=== PATIENT | male | born 1960 | race Caucasian/White ===

== ENCOUNTER 2023-08-01 14:05 | Inpatient (IN) | payer BC ==
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
[2023-08-01 17:02] LABS: Basophils % (A) 0 %; Eosinophils # (A) 0.2 k/uL (0-0.7); Eosinophils % (A) 1 %; HCT 41.4 % (39.0-53.0); HGB 13.7 gm/dL (13.0-17.5); Lymphocytes # (A) 1.8 k/uL (1.0-4.8); Lymphocytes % (A) 9 %; MCHC 33.1 g/dL (31.0-37.0); MCV 96.7 fL (80.0-100.0); Mean Platelet Volume 7.9; Monocytes # (A) 1.2 k/uL (0-1.0); Monocytes % (A) 6 %; Neutrophils # (A) 15.8 k/uL (1.3-7.7); Neutrophils % (A) 82 %; Platelet Count 353 k/uL (150-450); RBC 4.28 m/uL (4.30-5.90); RDW 14.3 % (11.5-15.5); WBC 19.3 k/uL (3.8-10.6)
[2023-08-01 17:18] LABS: ALT 27 U/L (4-49); AST 25 U/L (17-59); African American GFR (CKD) >90 (>60 ml/min/1.73 sqM); Albumin 4.2 g/dL (3.5-5.0); Alkaline Phosphatase 101 U/L (38-126); Anion Gap 13 mmol/L; Blood Urea Nitrogen 29 mg/dL (9-20); Calcium 9.4 mg/dL (8.4-10.2); Carbon Dioxide 22 mmol/L (22-30); Chloride 106 mmol/L (98-107); Glucose 126 mg/dL (74-99); INR 0.9 (<1.2); Non-African American GFR(CKD) 79 (>60 ml/min/1.73 sqM); Partial Thromboplastin Time 26.4 sec (22.0-30.0); Potassium 4.1 mmol/L (3.5-5.1); Prothrombin Time 10.3 sec (10.0-12.5); Sodium 141 mmol/L (137-145); Total Bilirubin 0.5 mg/dL (0.2-1.3); Total Protein 7.3 g/dL (6.3-8.2)
[2023-08-01] MEDS ORDERED: SODIUM CHLORIDE 0.9% 1,000 ML IV ONE (17:47)
[2023-08-01 18:36] LABS: Basophils % (A) 0 %; Eosinophils # (A) 0.1 k/uL (0-0.7); Eosinophils % (A) 0 %; HCT 40.1 % (39.0-53.0); HGB 13.5 gm/dL (13.0-17.5); Lymphocytes % (A) 11 %; MCH 32.4 pg (25.0-35.0); MCHC 33.7 g/dL (31.0-37.0); MCV 96.1 fL (80.0-100.0); Mean Platelet Volume 7.9; Monocytes # (A) 1.4 k/uL (0-1.0); Monocytes % (A) 8 %; Neutrophils # (A) 14.8 k/uL (1.3-7.7); Neutrophils % (A) 80 %; Platelet Count 362 k/uL (150-450); RBC 4.17 m/uL (4.30-5.90); RDW 14.4 % (11.5-15.5); WBC 18.5 k/uL (3.8-10.6)
[2023-08-01 19:19] LABS: Appearance,Urine Clear (Clear); Bacteria,Urine Rare /hpf; Bilirubin,Urine Negative (Negative); Blood,Urine Moderate (Negative); Color,Urine Yellow; Glucose,Urine (UA) Negative (Negative); Hyaline Casts,Urine 8 /lpf (0-2); Ketones,Urine Negative (Negative); Leukocyte Esterase,Urine Negative (Negative); Mucus,Urine Many /hpf; Nitrite,Urine Negative (Negative); PH, Urine 5.5 (5.0-8.0); Protein,Urine 1+ (Negative); RBC,Urine 23 /hpf (0-5); Specific Gravity,Urine 1.025 (1.001-1.035); Squamous Epithelial Cell,Urine <1 /hpf (0-4); Urobilinogen,Urine <2.0 mg/dL (<2.0); WBC,Urine 4 /hpf (0-5)
[2023-08-01 23:47] LABS: Basophils # (A) 0.1 k/uL (0-0.2); Basophils % (A) 0 %; Eosinophils # (A) 0.1 k/uL (0-0.7); Eosinophils % (A) 0 %; HCT 38.6 % (39.0-53.0); HGB 12.9 gm/dL (13.0-17.5); Lymphocytes # (A) 2.4 k/uL (1.0-4.8); Lymphocytes % (A) 13 %; MCH 32.2 pg (25.0-35.0); MCHC 33.4 g/dL (31.0-37.0); MCV 96.3 fL (80.0-100.0); Mean Platelet Volume 8.3; Monocytes # (A) 1.6 k/uL (0-1.0); Monocytes % (A) 8 %; Neutrophils # (A) 14.8 k/uL (1.3-7.7); Neutrophils % (A) 76 %; Platelet Count 307 k/uL (150-450); RBC 4.01 m/uL (4.30-5.90); RDW 14.8 % (11.5-15.5); WBC 19.4 k/uL (3.8-10.6)
[2023-08-02 08:48] LABS: HCT 38.6 % (39.0-53.0); HGB 12.7 gm/dL (13.0-17.5); MCHC 32.8 g/dL (31.0-37.0); MCV 97.7 fL (80.0-100.0); Mean Platelet Volume 7.8; Platelet Count 335 k/uL (150-450); RBC 3.95 m/uL (4.30-5.90); RDW 14.5 % (11.5-15.5); WBC 18.3 k/uL (3.8-10.6)
[2023-08-02 09:00] LABS: African American GFR (CKD) >90 (>60 ml/min/1.73 sqM); Anion Gap 9 mmol/L; Blood Urea Nitrogen 27 mg/dL (9-20); Calcium 8.8 mg/dL (8.4-10.2); Carbon Dioxide 24 mmol/L (22-30); Chloride 110 mmol/L (98-107); Glucose 109 mg/dL (74-99); Non-African American GFR(CKD) >90 (>60 ml/min/1.73 sqM); Potassium 3.9 mmol/L (3.5-5.1); Sodium 143 mmol/L (137-145)
[2023-08-02] MEDS: PIPERACILLIN-TAZOBACTAM 3.375 GM in SODIUM CHLORIDE 0.9% 100 ML IVPB SCH ×3 (10:07→23:49)
[2023-08-02] MEDS: IOPAMIDOL CONTRAST (ORAL USE) VIAL PO PRN ×2 (11:23→12:34)
--- NOTE | 2023-08-02 14:04 | CT ---
EXAMINATION TYPE: CT abdomen pelvis w con DATE OF EXAM: 08/02/2023 COMPARISON: None INDICATION: abdominal pain, rectal bleed DLP: 463.2 mGycm, Automated exposure control for dose reduction was used. CONTRAST: 100 mL of Isovue 300. Study performed with Oral Contrast TECHNIQUE: Axial images were obtained from above the diaphragm to the pubic rami in the axial plane a t 5 mm thick sections. Reconstructed images are reviewed on the computer in the coronal plane. FINDINGS: Limited CT sections are obtained the lung bases. The lung bases are clear. CT ABDOMEN: Liver: Hepatic cyst is present in the right lobe liver near the diaphragm Spleen: Normal Pancreas: Normal Adrenal glands: Left adrenal gland is thickened at 1.9 cm. Right adrenal gland appears normal. Gallbladder: Normal Kidneys: No masses are evident. No hydronephrosis is present. Delayed images were obtained through the kidneys which better demonstrate cortical renal cysts. Some peripelvic cysts are present bilatera lly. Aorta: Vascular calcification is within the aorta. Inferior vena cava: Normal. CT PELVIS: There is diffuse wall thickening from the distal transverse colon to the distal sigmoid colon. Correl ate for colitis. No free air is evident. Mild inflammatory changes are adjacent to the region of coli tis. Remaining loops of bowel with contrast. Normal. There are some loops of bowel lacking oral contr ast limiting their evaluation. Appendix: Normal as visualized. Urinary bladder: Normal. Genitourinary structures: Prostate contains calcification. Osseous structures: No suspicious lytic or sclerotic lesions. IMPRESSION: 1. Colitis extending from the distal transverse colon through the splenic flexure to the distal sigm oid colon.
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
--- NOTE | 2023-08-02 22:50 | HP ---
HISTORY AND PHYSICAL CHIEF COMPLAINT: Bright red rectal bleeding. HISTORY OF PRESENT ILLNESS: This is the first known admission for this 63-year-old white male. For the 3 to 4 days, he was having diarrhea and then started to have bright red rectal bleeding. He came to the emergency room [place] [address]. He was not febrile. He had no vomiting. His CT suggested colitis. REVIEW OF SYSTEMS: Otherwise is unremarkable. Past medical history, family history, personal and social histories reveal that he has been on Lotrel 10-20 once a day, leflunomide 20 mg once a day, and prednisone 10 mg once a day. This treatment is for rheumatoid arthritis. He does not smoke. PHYSICAL EXAMINATION: VITAL SIGNS: Blood pressure is 142/80, the pulse of 66, respirations of 18, he is afebrile. GENERAL: Appeared to be well developed, well nourished, no acute distress. SKIN: Skin color is normal. Skin is warm and dry. LYMPHATICS: Lymph nodes are not enlarged. HEAD, EARS, EYES, NOSE, MOUTH, AND THROAT: Normal. NECK: Neck veins not distended. Thyroid is not enlarged. CHEST: Clear. CARDIAC: Normal. ABDOMEN: Soft and slightly tender throughout. Bowel sounds are present. IMPRESSION: 1. Bright red rectal bleeding. 2. History of rheumatoid arthritis. 3. Possible colitis. 4. Leukocytosis. PLAN: 1. Bedrest. 2. IV fluids. 3. N.p.o. 4. Consult with Gastroenterology. MMODL / IJN: [id number] /
--- NOTE | 2023-08-02 22:59 | PN ---
PROGRESS NOTE DATE OF SERVICE: 08/02/2023 CHIEF COMPLAINT: Bright red rectal bleeding. HISTORY OF PRESENT ILLNESS: This gentleman is feeling okay and he is undergoing workup. He will be seen by Gastroenterology and a decision will have to be made whether or not he undergoes colonoscopy. PHYSICAL EXAMINATION: CHEST: Clear. CARDIAC: Normal. ABDOMEN: Flat and slightly tender in the right upper quadrant. IMPRESSION: 1. Bright red rectal bleeding. 2. Possible colitis. PLAN: Endoscopy. MMODL / IJN: [id number] /
[2023-08-03] MEDS: PIPERACILLIN-TAZOBACTAM 3.375 GM in SODIUM CHLORIDE 0.9% 100 ML IVPB SCH ×3 (08:18→23:10)
--- NOTE | 2023-08-03 11:02 | P.PN ---
Subjective Progress Note Date: 08/03/23 Principal diagnosis: Acute Colitis This pleasant 63-year-old male who presented to the emergency department yesterday afternoon with complaints of abdominal pain and rectal bleeding. Patient states Sunday night he started having lower abdominal pain and cramping followed by large amount of diarrhea. He then had several more episodes of lower abdominal cramping, however he then started having bright red blood per rectum with little stool. He states his continue all day yesterday and through the night. This morning he had very small amount of bright red blood. He stat es abdominal pain has improved however he'll get the cramping and then he knows he will be passing blood. He does have some nausea but no vomiting. He said he felt feverish and chills at home. He denies any similar episodes in the past, no history of colitis or Crohn's disease. Denies any anticoagulation. 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 On admission patient had a WBC of 19.3 hemoglobin 13.7. Today's repeat WBC 18.3 hemoglobin 12.7 sodium 143 potassium 3.9 BUN 27 creatinine 0.86. C. diff negative. Denies any previous EGD or colonoscopy. States he did a cologuard two weeks ago which was normal. 08/03/2023 Patient is seen and examined today as a follow-up. He states abdominal pain improving, but still having some lower abdominal cramping. Still having loose stool and bleeding every hour. No available labs this morning. He denies any nausea or vomiting, fevers or chills. He's been afebrile. Objective - Vital Signs Vital signs: Vital Signs Temp 98.9 F 08/03/23 02:51 Pulse 78 08/03/23 02:51 Resp 16 08/03/23 02:51 BP 116/79 08/03/23 02:51 Pulse Ox 97 08/03/23 02:51 FiO2 Intake & Output 08/02/23 08/02/23 08/03/23 06:59 18:59 06:59 Intake Total 900 1000 1500 Balance 900 1000 1500 Weight 65.771 kg Intake: Intake, IV Titration 900 1000 1000 Amount Piperacillin-Tazobactam 3 100 100 .375 gm In Sodium Chloride 0.9% 100 ml @ 25 mls/hr IVPB Q8HR [facility] Rx# :[id number] Sodium Chloride 0.9% 1, 900 900 900 000 ml @ 75 mls/hr IV . [id number] Rx#:[id number] Oral 500 Other: Voiding Method Toilet Toilet # Voids 1 2 # Bowel Movements 1 5 2 - Exam General appearance: The patient is alert, oriented, appears in no acute distress. HET: Head is normocephalic and atraumatic. Conjunctiva pink. Sclera anicteric. Neck: Supple without lymphadenopathy. Abdomen: Soft, lower abdominal tenderness, greatest on the left, nondistended. No guarding or rigidity. Extremities: Normal skin color and turgor. No pedal edema Skin: No rashes, no jaundice Neurological: No focal deficits. Alert and oriented. - Labs CBC & Chem 7: 08/02/23 08:30 08/02/23 08:30 Labs: Abnormal Lab Results - Last 24 Hours (Table) 08/02/23 08/02/23 Range/Units 08:30 08:30 WBC 18.3 H (3.8-10.6) k/uL RBC 3.95 L (4.30-5.90) m/uL Hgb 12.7 L (13.0-17.5) gm/dL Hct 38.6 L (39.0-53.0) % Chloride 110 H (98-107) mmol/L BUN 27 H (9-20) mg/dL Glucose 109 H (74-99) mg/dL Microbiology - Last 24 Hours (Table) 08/01/23 18:19 Blood Culture - Preliminary Blood 08/01/23 18:00 Blood Culture - Preliminary Blood Assessment and Plan (1) Colitis Narrative/Plan: 63-year-old male presenting to the emergency department with 2 days of abdominal cramping diarrhea and rectal bleeding. Presented with leukocytosis, with continued lower abdominal cramping and bright red blood per rectum. No previous history of colitis, no history of inflammatory bowel disease. No prior colonoscopy. Appears likely as acute uncomplicated colitis CT abdomen and pelvis was ordered which did show evidence of colitis extending from the distal transverse colon through the splenic flexure to the distal sigmoid colon. Likely ischemic versus infectious. Will start patient on IV Zosyn. Continue symptomatic and supportive care, transfuse as needed. Current Visit: Yes Status: Acute Code(s): K52.9 - NONINFECTIVE GASTROENTERITIS AND COLITIS, UNSPECIFIED SNOMED Code(s): 06980559 (2) GI bleed Current Visit: Yes Status: Acute Code(s): K92.2 - GASTROINTESTINAL HEMORRHAGE, UNSPECIFIED SNOMED Code(s): 94790952 Plan: 1. Continue symptomatic and supportive care 2. CT abdomen and pelvis ordered and reviewed 3. Advance to full liquid diet, advance diet slowly as tolerated 4. Daily CBC and transfuse for hemoglobin less than 7 5. Pain medication as needed 6. Continue IV antibiotics. Recommend 5 day course of outpatient antibiotics 8. No plans on endoscopic evaluation at this time. Recommend outpatient follow-up in a couple weeks to schedule outpatient colonoscopy. This was discussed both with the patient and family who verbalized understanding Thank you for this consultation, anticipate discharge in the next 24-48 hours. Gastroenterology will sign off at this time. Dr. Parrish Leigh I agree with the dictator's note, documented as a scribe by Malika Roberts.
[2023-08-03 11:55] LABS: HCT 38.3 % (39.0-53.0); HGB 12.5 gm/dL (13.0-17.5); MCH 32.1 pg (25.0-35.0); MCHC 32.7 g/dL (31.0-37.0); MCV 98.4 fL (80.0-100.0); Mean Platelet Volume 7.8; Platelet Count 330 k/uL (150-450); RBC 3.89 m/uL (4.30-5.90); RDW 14.4 % (11.5-15.5); WBC 16.1 k/uL (3.8-10.6)
[2023-08-03 12:18] LABS: African American GFR (CKD) >90 (>60 ml/min/1.73 sqM); Anion Gap 10 mmol/L; Blood Urea Nitrogen 17 mg/dL (9-20); Calcium 8.7 mg/dL (8.4-10.2); Carbon Dioxide 21 mmol/L (22-30); Chloride 110 mmol/L (98-107); Glucose 89 mg/dL (74-99); Non-African American GFR(CKD) >90 (>60 ml/min/1.73 sqM); Potassium 3.5 mmol/L (3.5-5.1); Sodium 141 mmol/L (137-145)
[2023-08-03] MEDS: PANTOPRAZOLE 40 MG/10 ML VIAL IVP SCH (20:09)
[2023-08-03] MEDS: ACETAMINOPHEN TAB 325 MG TAB PO PRN (20:13)
--- NOTE | 2023-08-03 23:59 | PN ---
PROGRESS NOTE DATE OF SERVICE: 08/03/2023 CHIEF COMPLAINT: Abdominal pain and hematochezia. HISTORY OF PRESENT ILLNESS: This gentleman is still having some nausea and vomiting. His white count is still at 18,300. He is being followed by Gastroenterology who does not plan the scope at this time. It is felt that this probably represents colitis. PHYSICAL EXAMINATION: ABDOMEN: Flat and slightly tender on the right side. Bowel sounds are present. CHEST: Clear. IMPRESSION: 1. Hematochezia. 2. Probable colitis. 3. Intractable nausea and vomiting. 4. Leukocytosis. PLAN: Continue to monitor his symptoms as well as his white blood cell count. MMODL / IJN: [id number] /
[2023-08-04 01:24] VITALS: RESP 18
[2023-08-04] MEDS: PIPERACILLIN-TAZOBACTAM 3.375 GM in SODIUM CHLORIDE 0.9% 100 ML IVPB SCH (07:03)
[2023-08-04] MEDS: PANTOPRAZOLE 40 MG/10 ML VIAL IVP SCH (09:44)
[2023-08-04] MEDS: ACETAMINOPHEN TAB 325 MG TAB PO PRN (09:44)
[2023-08-04 14:23] VITALS: BP 139/76; PULSE 73; TEMP 98
--- NOTE | 2023-08-04 21:32 | DS ---
DISCHARGE SUMMARY CHIEF COMPLAINT: Abdominal pain and bright red rectal bleeding. HISTORY OF PRESENT ILLNESS AND PHYSICAL EXAM: Details of this man's history and physical can be found in the initial workup. LABORATORY STUDIES: While he was in the hospital, he had laboratory studies, details of which can be found in the laboratory section of his chart. COURSE IN THE HOSPITAL: After admission, he was placed on bedrest, started on intravenous fluids and a GI workup. It was felt that this was related to colitis. He was seen by Gastroenterology. The scope was deferred at this time. He is doing well, was not passing any more blood and was felt that he could go home on the . He will follow up in the office as an outpatient and eventually will have an endoscopy. FINAL DIAGNOSES: 1. Lower extremity bright red bleeding or hematochezia. 2. Colitis. OPERATIONS: None. CONSULTATIONS: Gastroenterology. He is improved. MMODL / IJN: [id number] /
== END 2023-08-04 16:03 | disposition home or self-care (01) | DRG 392 ==
LOC: EC 14:05 → 5NMEDONC 17:47
PROVIDERS: ADMIT Family Medicine; ATTEND Family Medicine
DX: A09 Infectious gastroenteritis and colitis, unspecified (principal); K62.5 Hemorrhage of anus and rectum; M06.9 Rheumatoid arthritis, unspecified; Z90.81 Acquired absence of spleen; I10 Essential (primary) hypertension; Z79.899 Other long term (current) drug therapy; K21.9 Gastro-esophageal reflux disease without esophagitis; Z87.19 Personal history of other diseases of the digestive system
CPT/HCPCS: 36415; 74177; 80048; 80053; 81001; 83605; 85025; 85027; 85610; 85730; 86850; 86900; 86901; 87040; 87045; 87046; 87324; 93005; 96365; 96366; 99285